=== PATIENT | female | born 1970 | race Caucasian/White ===

== ENCOUNTER 2024-09-19 16:01 | Emergency (ER) | payer MEDICAID, SELFPAY ==
[2024-09-19 16:03] VITALS: BP 153/92; PULSE 102; RESP 16; TEMP 37; O2SAT 98
--- NOTE | 2024-09-19 16:15 | DI.RAD_ITS ---
Exam(s) XR FOOT LT COMPLETE EXAM: XR FOOT LT COMPLETE CLINICAL HISTORY: fall, lateral foot pain. TECHNIQUE: 2D digital imaging was performed of the left foot. Three images were obtained. AP, oblique and lateral views were obtained. COMPARISON: No exams were available for comparison FINDINGS: BONES: There is an acute nondisplaced fracture proximal left 5th metatarsal. The fracture occurs through the proximal metadiaphyseal junction. No bony destructive lesion is seen. JOINTS: No dislocation present. SOFT TISSUE: Normal. IMPRESSION: Acute nondisplaced fracture of the proximal left 5th metatarsal. DATA REPOSITORY: RADIATION DOSE DELIVERED:
--- NOTE | 2024-09-19 16:17 | W.ED.GENAD ---
Discharge Plan Disposition Patient Disposition: Home Condition: Stable Discharge Details Clinical Impression: Closed nondisplaced fracture of fifth left metatarsal bone Primary Care Provider: Unknown,Unknown ED Provider: Tomás Jackson Home Meds and New Rx's Prescriptions: Continued levothyroxine [Euthyrox] 125 mcg tablet 125 mcg PO DAILY bupropion HCl [Wellbutrin SR] 150 mg tablet sustained-release 12 hr 150 mg PO DAILY sertraline [Zoloft] 25 mg tablet 20 mg PO DAILY budesonide-formoterol [Symbicort] 80-4.5 mcg/actuation HFA aerosol inhaler 2 puff inhalation BID loratadine [Allergy Relief (loratadine)] 10 mg tablet 10 mg PO DAILY Discharge Instructions Additional Instructions: Your x-ray to me showed a proximal metatarsal fracture where you have the swelling and pain in your foot. You should be nonweightbearing until you follow-up with orthopedics. You can take 1000 mg of acetaminophen and 600 mg of ibuprofen every 6 hours as needed. When you are sitting or lying down try and keep your leg elevated to help with the swelling. If you feel more ill or have severe worsening pain return to the emergency department for reevaluation. HPI General Date/Time Provider Initiated Documentation: 09/19/24 16:13. Limitations to Documentation: no limitations. Information obtained by: patient. History of Present Illness 53 year old F presents to the emergency department with the chief complaint of left foot pain s/p fall, described as moderate, Quality is described as aching, Patient started experiencing this hour(s) (1) and it has been constant. No relieving factors improve symptom(s), No exacerbating factors reported . Patient notes no other symptoms.. Patient did receive the following treatments prior to arrival, none Related Data Home Medications ?Medication ?Instructions ?Recorded ?Confirmed budesonide-formoterol HFA 80 2 puff inhalation BID 09/19/24 09/19/24 mcg-4.5 mcg/actuation aerosol inhaler (Symbicort) bupropion HCl 150 mg tablet,12 hr 150 mg PO DAILY 09/19/24 09/19/24 sustained-release (Wellbutrin SR) levothyroxine 125 mcg tablet 125 mcg PO DAILY 09/19/24 09/19/24 (Euthyrox) loratadine 10 mg tablet (Allergy 10 mg PO DAILY 09/19/24 09/19/24 Relief (loratadine)) sertraline 25 mg tablet (Zoloft) 20 mg PO DAILY 09/19/24 09/19/24 Allergies Allergy/AdvReac Type Severity Reaction Status Date / Time amoxicillin Allergy Intermediate Other (See Verified 09/19/24 16:03 Comment) General Stated Complaint: Orthopedic VIDAL: 4 Review of Systems All systems reviewed & are unremarkable except as noted in HPI and below Constitutional Constitutional: Denies chills, Denies fever(s) and Denies weakness Cardiovascular Cardiovascular: Denies chest pain and Denies dyspnea Respiratory Respiratory: Denies cough and Denies dyspnea Gastrointestinal Gastrointestinal: Denies abdominal pain and Denies vomiting Neurologic Neurologic: Denies weakness Exam Const General: no acute distress Orientation: alert HENMT Head: normal to inspection Ears: external ears normal General nose exam: external nose normal Mouth: moist mucous membranes Eyes General: appearance normal, both eyes and all related structures Neck Neck: normal visual inspection Resp Effort & Inspection: normal respiratory effort and able to speak in complete sentences Cardio Rate: regular rate Skin General skin exam: no rashes or lesions noted Neuro General: patient alert and patient oriented x3 Extrem General: full ROM and capillary refill normal Psych Mental Status: mental status grossly normal Course Vital Signs Vital signs: Vital Signs Temperature 37 C 09/19/24 16:03 Pulse 102 H 09/19/24 16:03 Respiratory Rate 16 09/19/24 16:03 Blood Pressure 153/92 H 09/19/24 16:03 Pulse Oximetry 98 09/19/24 16:03 Temperature 37 C 09/19/24 16:03 Temperature Source Tympanic 09/19/24 16:03 Pulse 102 H 09/19/24 16:03 Respiratory Rate 16 09/19/24 16:03 Blood Pressure 153/92 H 09/19/24 16:03 Blood Pressure Position Sitting 09/19/24 16:03 Pulse Oximetry 98 09/19/24 16:03 Oxygen Delivery Method Room Air 09/19/24 16:03 Oxygen Flow Rate 0 09/19/24 16:03 Pain Level 6 09/19/24 16:03 Comment Pain = worse w/ wt. bearing 09/19/24 16:03 Medical Decision Making 53-year-old female comes in after she was walking and stepped out of a sidewalk and tripped and hit her left lateral midfoot. Denies hitting her head or loss of consciousness. She denies any vomiting, she only has tenderness over the lateral midfoot. She has full range of motion of her ankle and no tenderness in the ankle, tib-fib or near thigh or hip. She has swelling to the lateral midfoot with intact sensation and pulses in her foot. There is no crepitus or erythema. I suspect contusion versus sprain versus fracture of the foot, will obtain x-rays of the foot to further evaluate. X-ray on my read shows a proximal fifth metatarsal fracture. Patient is stable and has no new pain elsewhere. She says she has no significant pain unless she is bearing weight or the area where the fractured is touched. Current fever a turnaround times are close to 2 hours and she does not want to wait for these reads. I will call her if they see anything of note or if there is a disagreement with this read. Placed her in a short posterior ankle splint and she will use crutches. She says she lives in [place] and is only 20 minutes from the orthopedic group at [facility] so I will place on her follow-up list to try and get a referral to them. Return precautions given Differential Diagnosis Differential Diagnosis: Fracture, sprain, contusion PFSH All Active Problems (Updated 09/19/24 @ 17:47 by Tomás Jackson MD) Closed nondisplaced fracture of fifth left metatarsal bone (Acute) Social History Smoking/Tobacco Use Status: Never Smoking risk assessment performed?: Yes Alcohol Intake: current Alcohol Intake frequency: a few times a week Alcohol type: beer, wine and hard liquor Drug use: Never Substance use type: does not use Do you feel safe at home: Yes Do you feel safe in your relationship?: Yes PAWSS Have you Been Recently Intoxicated or Drunk Within the Last 30 days?: No Have you Ever Experienced Previous Episodes of Alcohol Withdrawal?: No Have you ever Experienced Withdrawal Seizures?: No Have you ever Experienced Delirium Tremens(DT)s?: No Have you ever undergone Alcohol Rehabilitation Treatment (i.e, inpt ot outpatient treatment programs)?: No Have you ever Experienced Blackouts?: No Have you ever Combined Alcohol with other Downers within the last 90 days?: No Have you ever Combined Alcohol with any other Substance of Abuse during the last 90 days?: No Positive Blood Alcohol level on Presentation? [PCS.BAL]: Unable to Obtain Evidence of Increased Autonomic Activity (i.e. HR>120, tremor, sweating, agitation, nausea)?: No Result: 0
--- NOTE | 2024-09-19 19:13 | DI.VRAD_ITS ---
PROCEDURE INFORMATION: Exam: XR Left Foot Exam date and time: 09/19/2024 5:19 PM Age: 53 years old Clinical indication: Left; Fall, lateral foot pain TECHNIQUE: Imaging protocol: Radiologic exam of the left foot. Views: 3 or more views. COMPARISON: No relevant prior studies available. FINDINGS: Bones/joints: Fracture of the 5th metatarsal proximal metaphysis. Transverse nondisplaced fracture. No articular involvement. This is consistent with a Vera fracture. Remainder of the foot is unremarkable as far as skeletal structures and joint spaces. Soft tissues: No acute soft tissue foreign body. Mild soft tissue swelling. IMPRESSION: Fifth metatarsal basal transverse fracture consistent with a Vera fracture variant. Nondisplaced. Dictated and Authenticated by: Davy Parrish MD. Orderin Manuel England MD
--- NOTE | 2024-09-21 09:51 | NUR.NOTE ---
Access chart to print demographic sheet for [facility] billing requisition and discharge diagnosis. Nursing Note:
== END 2024-09-19 18:23 | disposition home or self-care (01) ==
PROVIDERS: Emergency Provider Emergency Medicine
DX: S92.355A Nondisplaced fracture of fifth metatarsal bone, left foot, initial encounter for closed fracture (principal); X50.1XXA Overexertion from prolonged static or awkward postures, initial encounter; Y93.01 Activity, walking, marching and hiking; Y92.480 Sidewalk as the place of occurrence of the external cause
CPT/HCPCS: 99283; 73630